=== PATIENT | female | born 1990 | race Hispanic/Latino ===

== ENCOUNTER 2021-09-06 17:52 | Emergency (ER) | payer OTHER ==
[~2021-09-06] VITALS: Ht 152.4 cm; Wt 44.5 kg
== END 2021-09-06 18:43 | disposition home or self-care (01) ==
LOC: EDBD 17:52 → FSED 18:00
DX: O72.2 Delayed and secondary postpartum hemorrhage (principal)
CPT/HCPCS: 81003; 81025; 99283